=== PATIENT | female | born 1975 | race Caucasian/White ===

== ENCOUNTER 2025-01-07 07:47 | Outpatient (CLI) | payer OTHER, SELFPAY ==
--- OUTSIDE RECORDS SUMMARY | 2025-01-07 07:51 | XMS_ITS ---
Author Organization [facility] Address [address] [place] [address] Care Team Providers Care Manager Packaging Name Role Phone Kamaljit Cr Primary Care Provider Results Component Value Reference Range Notes UA/M w/rflx Culture, Routine Reviewed date:01/06/2025 11:30:23 AM Interpretation: Performing Lab:[facility], [place], [address] [facility], Phone - [phone], Director - [facility] Notes/Report: Specific [place] 1.012 1.005-1.030 pH 7.0 5.0-7.5 Urine-Color Yellow Yellow Appearance Clear Clear WBC Esterase 1+ Negative Protein Negative Negative/Trace Glucose Negative Negative Ketones Negative Negative Occult Blood Negative Negative Bilirubin Negative Negative Urobilinogen,Semi-Qn 0.2 0.2-1.0 mg/dL Nitrite, Urine Positive Negative Microscopic Examination See below: Micr oscopic was indicated and was performed. Urinalysis Reflex This speci men has reflexed to a Urine Culture. WBC 6-10 0 - 5 /hpf RBC 0-2 0 - 2 /hpf Epithelial Cells (non renal) 0-10 0 - 10 /hpf Casts None seen None seen /lpf Bacteria Many None seen/Few Urine Culture, Routine Final report Result 1 Escherichia coli Cefazolin with an QUIANA <=16 predicts susceptibility to the oral agents cefaclor, cefdinir, cefpodoxime, cefprozil, cefuroxime, cephalexin, and loracarbef when used for therapy of uncomplicated urinary tract infections due to E. coli, Klebsiella pneumoniae, and Proteus mirabilis. Greater than 100,000 colony forming units per mL Antimicrobial Susceptibility S = Susceptible; I = Intermediate; R = Resistant P = Positive; N = Negative MICS are expressed in micrograms per mL Antibiotic RSLT#1 RSLT#2 RSLT#3 RSLT#4 Amoxicillin/Clavulanic Acid S Ampicillin S Cefazolin S Cefepime S Cefoxitin S Cefpodoxime S Ceftriaxone S Ciprofloxacin R Ertapenem S Gentamicin S Levofloxacin R Meropenem S Nitrofurantoin S Piperacillin/Tazobactam S Tetracycline S Tobramycin S Trimethoprim/Sulfa S Hepatitis C Virus Antibody w /Rflx to Quantitative Real-time PCR ([id number]) Reviewed date:01/06/2025 11:30:23 AM Interpretation: Performing Lab:[facility] [place] [address] [place], [place] [address]ox [facility], Phone - [phone], Director - Nigel Notes/Report: HCV Ab Non Reactive Non Reactive Interpretation: Not infected with HCV unless early or acute infection is suspected (which may be delayed in an immunocompromised individual), or other evidence exists to indicate HCV infection. Hepatitis B Surf Ab Quant* Reviewed date:01/06/2025 11:30:23 AM Interpretation: Performing Lab:[facility] [place] [address] [place], [place] [address] [facility], Phone - [phone], Director - Nigel Notes/Report: Hepatitis B Surf Ab Quant <3.5 Immunity>10 mIU/mL Status of Immunity Anti-HBs Level Inconsistent with Immunity 0.0 - 10.0 Consistent with Immunity >10.0 Hepatitis B Surface Antigen (HBsAg Screen) Reviewed date:01/06/2025 11:30:23 AM Interpretation: Performing Lab:[facility], Phone - [phone], Director - Nigel Notes/Report: HBsAg Screen Negative Negative CMP 14 Comprehensive Metabol ic Panel* Reviewed date:01/06/2025 11:30:23 AM Interpretation: Performing Lab:[facility] [place] [facility], Phone - [phone], Director - Nigel Notes/Report: Glucose 101 70-99 mg/dL BUN 14 6-24 mg/dL Creatinine 0.80 0.57-1.00 mg/dL eGFR 90 >59 mL/min/1.73 BUN/Creatinine Ratio 18 9-23 Sodium 138 134-144 mmol/L Potassium 4.2 3.5-5.2 mmol/L Chloride 100 96-106 mmol/L Carbon Dioxide, Total 20 20-29 mmol/L Calcium 9.6 8.7-10.2 mg/dL Protein, Total 7.3 6.0-8.5 g/dL Albumin 4.4 3.9-4.9 g/dL Globulin, Total 2.9 1.5-4.5 g/dL Bilirubin, Total 0.3 0.0-1.2 mg/dL Alkaline Phosphatase 90 44-121 IU/L AST (SGOT) 25 0-40 IU/L ALT (SGPT) 29 0-32 IU/L Lipid Panel* Reviewed date:01/06/2025 11:30:23 AM Interpretation: Performing Lab:[facility] [place], [address] [place] [address], Phone - [phone], Director - [facility] Notes/Report: Cholesterol, Total 265 100-199 mg/dL Triglycerides 139 0-149 mg/dL HDL Cholesterol 51 >39 mg/dL VLDL Cholesterol New 25 5-40 mg/dL LDL Chol Calc (NIH) 189 0-99 mg/dL Hemoglobin A1c* Reviewed date:01/06/2025 11:30:23 AM Interpretation: Performing Lab:[facility] [place], [address] [place] [address], Phone - [phone], Director - PhDPaul A. Dever State Schoolabhinav Notes/Report: Hemoglobin A1c 6.2 4.8-5.6 % . Prediabetes: 5.7 - 6.4 Diabetes: >6.4 Glycemic control for adults with diabetes: <7.0 TSH Rfx on Abnormal to Free T4 Reviewed date:01/06/2025 11:30:23 AM Interpretation: Performing Lab:[facility] [place], [address] [place] [address], Phone - [phone], Director - PhDChristus St. [facility] Center[facility] Notes/Report: TSH 4.880 0.450-4.500 uIU/mL T4,Free (Direct) 0.97 0.82-1.77 ng/dL C-Reactive Protein, Quant Reviewed date:01/06/2025 11:30:23 AM Interpretation: Performing Lab:[facility] [place], [address] [facility], Phone - [phone], Director - [facility] Notes/Report: C-Reactive Protein, Quant 7 0-10 mg/L CBC With Differential/Platel et* Reviewed date:01/06/2025 11:30:23 AM Interpretation: Performing Lab:[facility] [place], [address] [facility], Phone - [phone], Director - [facility] Notes/Report: WBC 8.2 3.4-10.8 x10E3/uL RBC 4.81 3.77-5.28 x10E6/uL Hemoglobin 14.1 11.1-15.9 g/dL Hematocrit 43.2 34.0-46.6 % MCV 90 79-97 fL MCH 29.3 26.6-33.0 pg MCHC 32.6 31.5-35.7 g/dL RDW 15.5 11.7-15.4 % Platelets 426 150-450 x10E3/uL Neutrophils 43 Not Estab. % Lymphs 45 Not Estab. % Monocytes 7 Not Estab. % Eos 4 Not Estab. % Basos 1 Not Estab. % Neutrophils (Absolute) 3.5 1.4-7.0 x10E3/uL Lymphs (Absolute) 3.7 0.7-3.1 x10E3/uL Monocytes(Absolute) 0.5 0.1-0.9 x10E3/uL Eos (Absolute) 0.4 0.0-0.4 x10E3/uL Baso (Absolute) 0.1 0.0-0.2 x10E3/uL Immature Granulocytes 0 Not Estab. % Immature Grans (Abs) 0.0 0.0-0.1 x10E3/uL FSH, Serum Reviewed date:01/06/2025 11:30:23 AM Interpretation: Performing Lab:[facility] [place], [facility], Phone - [phone], Director - [facility] Notes/Report: FSH 77.7 Adult Female Range Follicular phase 3.5 - 12.5 Ovulation phase 4.7 - 21.5 Luteal phase 1.7 - 7.7 Postmenopausal 25.8 - 134.8 Iron and TIBC* Reviewed date:01/06/2025 11:30:23 AM Interpretation: Performing Lab:[facility] [place], [address] [facility], Phone - [phone], Director - [facility] Notes/Report: Iron Bind.Cap.(TIBC) 425 250-450 ug/dL UIBC 338 131-425 ug/dL Iron 87 27-159 ug/dL Iron Saturation 20 15-55 % Vitamin B12 and Folate Reviewed date:01/06/2025 11:30:23 AM Interpretation: Performing Lab:[facility] [place], [address] [facility], Phone - [phone], Director - [facility] Notes/Report: Vitamin B12 573 164-4923 pg/mL Folate (Folic Acid), Serum 5.1 >3.0 ng/mL A serum folate concentration of less than 3.1 ng/mL is considered to represent clinical deficiency. Celiac Antibodies tTG IgA, E MA IgA, Total IgA w/reflex to tTG IgG Reviewed date:01/06/2025 11:30:23 AM Interpretation: Performing Lab:[facility] [place], [address] [facility], Phone - [phone], Director - [facility] Notes/Report: Endomysial Antibody IgA Negative Negative t-Transglutaminase (tTG) IgA <2 0-3 U/mL Negative 0 - 3 Weak Positive 4 - 10 Positive >10 . Tissue Transglutaminase (tTG) has been identified as the endomysial antigen. Studies have demonstr- ated that endomysial IgA antibodies have over 99% specificity for gluten sensitive enteropathy. Immunoglobulin A, Qn, Serum 123 87-352 mg/dL HIV Screen *HIV 1, 2 Ab, p24 Ag ([id number]) Reviewed date:01/06/2025 11:30:23 AM Interpretation: Performing Lab:[facility] [place], [address] [facility], Phone - [phone], Director - [facility] Notes/Report: HIV Ab/p24 Ag Screen Non Reactive Non Reactive HIV-1/HIV-2 antibodies and HIV-1 p24 antigen were NOT detected. There is no laboratory evidence of HIV infection. HIV Negative REASON FOR VISIT labs Social History Sex Assigned At : Social History Observation Description Sex Assigned At Female Encounters Encounter Location Date Provider Diagnosis [address] [place] [address] 12/31/2024 Kamaljit Shaye Fatigue R53.83 ; Exposure to potential infection Z20.9 ; Irritable bowel syndrome with both constipation and diarrhea K58.2 ; Colon cancer screening Z12.11 ; Screening for diabetes mellitus Z13.1 ; Amenorrhea, secondary N91.1 ; Lipid screening Z13.220 and Pelvic pain in female R10.2 Assessments Encounter Date Diagnosis (ICD Code) Assessment Notes Treatment Notes Treatment Clinical Notes Section Notes 12/31/2024 Fatigue (ICD-10 - R53.83) 12/31/2024 Exposure to potential infection (ICD-10 - Z20.9) 12/31/2024 Irritable bowel syndrome with both constipation and diarrhea (ICD-10 - K58.2) 12/31/2024 Colon cancer screening (ICD-10 - Z12.11) 12/31/2024 Screening for diabetes mellitus (ICD-10 - Z13.1) 12/31/2024 Amenorrhea, secondary (ICD-10 - N91.1) 12/31/2024 Lipid screening (ICD-10 - Z13.220) 12/31/2024 Pelvic pain in female (ICD-10 - R10.2) Plan Of Treatment Pending Test Test Name Order Date H. pylori Stool Ag, EIA 12/31/2024 Occult Blood, Fecal, [place] ([id number]) 025 Calprotectin, Fecal 12/31/2024 Next Appt Details Provider Name:Giancarlo connelly, 01/13/2025 10:00:00 AM, [address] [place] [address], [place], [address], Progress Notes * Divine HARMAN GDOB:1975 (49 yo F)Acc No.[id number]:12/31/2024 UNLOCKED PROGRESS NOTE Patient: Divine MAX Provider: Temi Cr :1975 A ge:49 Y S ex:Female Date:12/31/2024 Address:[address] [facility] Subjective: * Chief Complaints: * 1 . Labs. * Medical History: Objective: * Vitals: Assessment: * Assessment: 1. F atigue - R53.83 2 . E xposure to potential infection - Z20.9 ? 3 . I rritable bowel syndrome with both constipation and diarrhea - K58.2 ?4. C olon cancer screening - Z12.11 5 . S creening for diabetes mellitus - Z13.1 6 . A menorrhea, secondary - N91.1 7 . L ipid screening - Z13.220 8 . P elvic pain in female - R10.2 Plan: * Treatment: 2. E xposure to potential infection L AB: HIV Screen *HIV 1, 2 Ab, p24 Ag ([id number]) (Collection Date & Time - 12/31/2024 09:57 AM) L AB: Hepatitis B Surface Antigen (HBsAg Screen) (Collection Date & Time - 12/31/2024 09:57 AM) L AB: Hepatitis B Surf Ab Quant* (Collection Date & Time - 12/31/2024 09:57 AM) L AB: Hepatitis C Virus Antibody w/Rflx to Quantitative Real-time PCR ([id number]) (Collection Date & Time - 12/31/2024 09:57 AM) 3. I rritable bowel syndrome with both constipation and diarrhea L AB: H. pylori Stool Ag, EIA L AB: Calprotectin, Fecal L AB: Celiac Antibodies tTG IgA, ROEL IgA, Total IgA w/reflex to tTG IgG (Collection Date & Time - 12/31/2024 09:57 AM) L AB: C-Reactive Protein, Quant (Collection Date & Time - 12/31/2024 09:57 AM) 4. C olon cancer screening L AB: Occult Blood, Fecal, [place] ([id number]) 5. S creening for diabetes mellitus L AB: Hemoglobin A1c* (Collection Date & Time - 12/31/2024 09:57 AM) 6. A menorrhea, secondary L AB: FSH, Serum (Collection Date & Time - 12/31/2024 09:57 AM) 7. L ipid screening L AB: Lipid Panel* (Collection Date & Time - 12/31/2024 09:57 AM) 8. P elvic pain in female L AB: UA/M w/rflx Culture, Routine (Collection Date & Time - 12/31/2024 09:57 AM) * Procedure Codes: 8 7338 HPYLORI, STOOL, EIA * * Electronic signature of Reji Cr , [id number] on 01/07/2025 at 07:50 AM CDT Sign off status: Pending * Provider: Temi Cr Date: 0 12/31/2024 Generated for Reji mcrae/Kasandra/Micki on: 0 01/07/2025 07:50 AM CDT
--- OUTSIDE RECORDS SUMMARY | 2025-01-07 07:51 | XMS_ITS ---
Author Organization Replaced by [facility] Address [address] [place] [address] Care Team Providers Care Merchandise Presentation Associate Name Role Phone Kamaljit Cr Primary Care Provider Medications Medication SIG (Take, Route, Fr equency, Duration) Notes Start Date End Date Status Macrobid 100 MG 1 capsule with food Orally twice a day; Duration: 5 01/06/2025 Active Social History Sex Assigned At : Social History Observation Description Sex Assigned At Female Encounters Encounter Location Date Provider Diagnosis [address] [address] 01/06/2025 Kamaljit Cr UTI (urinary tract infection) N39.0 Assessments Encounter Date Diagnosis (ICD Code) Assessment Notes Treatment Notes Treatment Clinical Notes Section Notes 01/06/2025 UTI (urinary tract infection) (ICD-10 - N39.0) 01/06/2025 Other Learning About the Safe Use of Antibiotics material was discussed. Pt was educated on use of antibiotic medication including dosing, side effects, adverse effects and anticipated response. Pt was also educated on importance of completing full course of treatment as ordered. Patient voiced understanding of all. Plan Of Treatment Medication Medication Name Sig Start Date Stop Date Notes Macrobid 100 MG 1 capsule with food Orally twice a day; Duration: 5 01/06/2025 Treatment Notes Assessment Notes Other Learning About the S afe Use of Antibiotics material was discussed. Pt was educated on use of antibiotic medication including dosing, side effects, adverse effects and anticipated response. Pt was also educated on importance of completing full course of treatment as ordered. Patient voiced understanding of all. Next Appt Details Provider Name:Giancarlo connelly, 01/13/2025 10:00:00 AM, [address] [facility], [place], [address], Progress Notes * Divine HARMAN GDOB:1975 (49 yo F)Acc No.[id number]:01/06/2025 Patient: Divine MAX :1975 A ge:49 Y S ex:Female Address:[address] [place], [address] * Refills Start Macrobid Capsule, 100 MG, Orally, 10 Capsule, 1 capsule with food, twice a day, 5, Refills=0 Subjective: * Chief Complaints: * * Medical History: * Surgical History: * Hospitalization/Major Diagno stic Procedure: * Medications: Objective: * Vitals: * Physical Examination: Assessment: * Assessment: 1. U TI (urinary tract infection) - N39.0 (Primary) Plan: * Treatment: 2. O thers Notes:Learning About the Safe Use of Antibiotics material was discussed. Pt was educated on use of antibiotic medication including dosing, side effects, adverse effects and anticipated response. Pt was also educated on importance of completing full course of treatment as ordered. Patient voiced understanding of all. * Procedure Codes: C HS02 Education given- Antibiotics prescribed * true * Date: Generated for Reji mcrae/Kasandra/eTmukeshsmitting on: 0 01/07/2025 07:50 AM CDT
--- OUTSIDE RECORDS SUMMARY | 2025-01-07 07:51 | XMS_ITS | Clinical Summary ---
Author Organization [facility] Address [address] [place] [address] Care Team Providers Care Film Printer Name Role Phone Unavailable Primary Care Provider Unavailabl e Source Comments [facility],non-owned Affiliates and Associated Physician Practices is amultiple site organization consisting of ambulatory clinics and hospital sitesin [place], [place], [place] and [place]. This disclosure is being madepursuant to the Care Everywhere program and may not contain all information available regarding this patient. Last updated 18.[facility] Allergies No known active allergies Medications * Be aware that medications may not be up to date on this document. Alwaysverify current medications with the patient. methocarbamol (ROBAXIN) 750 MG tablet Take 1 Tab by mouth every 8 hours. 15 Tab 0 02/13/2014 Active ibuprofen (MOTRIN) 800 MG tablet Take 1 Tab by mouth 3 times daily. 20 Tab 0 02/13/2014 Active traMADol-acetami nophen (ULTRACET) 37.5-325 MG tablet Take 2 Tabs by mouth every 6 hours as needed for Pain. 20 Tab 0 02/13/2014 Active Social History Tobacco Use Types Packs/Day Years Used Date Smoking Tobacco: Never Assessed Comments Unknown Sex and Gender Information Value Date Recorded Sex Assigned at Not on file Legal Sex Female 3:56 PM CDT Gender Identity Not on file Sexual Orientation Not on file Last Filed Vital Signs Vital Sign Reading Time Taken Comments Blood Pressure 102/70 02/13/2014 4:05 PM CDT Pulse 74 02/13/2014 4:05 PM CDT Temperature 37 C (98.6 F) 02/13/2014 4:05 PM CDT Respiratory Rate 18 02/13/2014 4:05 PM CDT Oxygen Saturation 100% 02/13/2014 4:05 PM CDT Inhaled Oxygen Concentration - - Weight 65.8 kg (145 lb) 02/13/2014 4:05 PM CDT Height 160 cm (5' 3) 02/13/2014 4:05 PM CDT Body Mass Index 25.69 02/13/2014 4:05 PM CDT Plan of Treatment Health Maintenance Due Date Last Done Comments COLOGUARD (AGES 45-75) - COL ON CA SCREENING 1975 COLON MONITORING 1975 COLONOSCOPY - COLON CA SCREENING 1974 CT COLONOGRAPHY - COLON CA SCREENING 1975 Colorectal Cancer Screening 1975 FIT - COLON CA SCREENING 1974 FLEX SIG - COLON CA SCREENING 1974 LIPID TESTING 1975 MAMMOGRAM 1974 HIV SCREENING 1989 HEPATITIS C SCREENING 05/05/1992 DTAP/TDAP/TD VACCINES (1 - Tdap) 1993 HEPATITIS B VACCINE (1 of 3 - 19+ 3-dose series) 1993 COVID-19 VACCINE (1 - 2023-2 5 season) 2024 PNEUMOCOCCAL VACCINE 50+ (1 of 1 - PCV) 2024 ZOSTER VACCINE (1 of 2) 2024 DEPRESSION SCREENING 06/04/2024 INFLUENZA VACCINE (#1) 2025 HIB VACCINE Aged Out No longer eligi ble based on patient's age to complete this topic HPV VACCINE Aged Out No longer eligi ble based on patient's age to complete this topic MENINGOCOCCAL (Group B) VACC INE SHARED DECISION-MAKING Aged Out No longer eligibl e based on patient's age to complete this topic MENINGOCOCCAL GROUPS A/C/Y/W VACCINE Aged Out No longer eligible b ased on patient's age to complete this topic Insurance [place] [address] TP THIRD REPUBLICAN LIABILITY Green Party Liability
--- OUTSIDE RECORDS SUMMARY | 2025-01-07 07:51 | XMS_ITS | Patient Health Record ---
Author Organization [facility] Address [address] [place] [address] Care Team Providers Care Manager [place] Name Role Phone Kamaljit Cr Primary Care Provider [phone] Giancarlo Reyna Unavailable [phone] Allergies No Known Allergies Results Component Value Reference Range Notes HIV Screen *HIV 1, 2 Ab, p24 Ag ([id number]) Reviewed date:01/06/2025 11:30:23 AM Interpretation: Performing Lab:[facility] [place], [address] [facility], Phone - [phone], Director [facility] Notes/Report: HIV Ab/p24 Ag Screen Non Reactive Non Reactive HIV-1/HIV-2 antibodies and HIV-1 p24 antigen were NOT detected. There is no laboratory evidence of HIV infection. HIV Negative Celiac Antibodies tTG IgA, E MA IgA, Total IgA w/reflex to tTG IgG Reviewed date:01/06/2025 11:30:23 AM Interpretation: Performing Lab:[facility] [place], [address] [facility], Phone - [phone], [facility] Notes/Report: Endomysial Antibody IgA Negative Negative t-Transglutaminase (tTG) IgA <2 0-3 U/mL Negative 0 - 3 Weak Positive 4 - 10 Positive >10 . Tissue Transglutaminase (tTG) has been identified as the endomysial antigen. Studies have demonstr- ated that endomysial IgA antibodies have over 99% specificity for gluten sensitive enteropathy. Immunoglobulin A, Qn, Serum 123 87-352 mg/dL Vitamin B12 and Folate Reviewed date:01/06/2025 11:30:23 AM Interpretation: Performing Lab:[facility] [address] [place] [address], Phone - [phone], Director - [facility] Notes/Report: Vitamin B12 309 481-0562 pg/mL Folate (Folic Acid), Serum 5.1 >3.0 ng/mL A serum folate concentration of less than 3.1 ng/mL is considered to represent clinical deficiency. Iron and TIBC* Reviewed date:01/06/2025 11:30:23 AM Interpretation: Performing Lab:[facility] [address] [place] [address], Phone - [phone], Director - [facility] Notes/Report: Iron Bind.Cap.(TIBC) 425 250-450 ug/dL UIBC 338 131-425 ug/dL Iron 87 27-159 ug/dL Iron Saturation 20 15-55 % Hemoglobin A1c* Reviewed date:01/06/2025 11:30:23 AM Interpretation: Performing Lab:[address], Phone - [phone], Director - [facility] Notes/Report: Hemoglobin A1c 6.2 4.8-5.6 % . Prediabetes: 5.7 - 6.4 Diabetes: >6.4 Glycemic control for adults with diabetes: <7.0 FSH, Serum Reviewed date:01/06/2025 11:30:23 AM Interpretation: Performing Lab:[facility] [address] [place] [address], Phone - [phone], Director - [facility] Notes/Report: FSH 77.7 Adult Female Range Follicular phase 3.5 - 12.5 Ovulation phase 4.7 - 21.5 Luteal phase 1.7 - 7.7 Postmenopausal 25.8 - 134.8 CBC With Differential/Platel et* Reviewed date:01/06/2025 11:30:23 AM Interpretation: Performing Lab:[facility] [address] [place] [address], Phone - [phone], Director - [facility] Notes/Report: WBC 8.2 3.4-10.8 x10E3/uL RBC [...] % Immature Grans (Abs) 0.0 0.0-0.1 x10E3/uL Hepatitis B Surface Antigen (HBsAg Screen) Reviewed date:01/06/2025 11:30:23 AM Interpretation: Performing [facility] [address] [place] [address], Phone - [phone], [facility] - [facility] Notes/Report: HBsAg Screen Negative Negative Hepatitis B Surf Ab Quant* Reviewed date:01/06/2025 11:30:23 AM Interpretation: Performing Lab[facility], [address] [place] [address], Phone - [phone], Director - Nigel Notes/Report: Hepatitis B Surf Ab Quant <3.5 Immunity>10 mIU/mL Status of Immunity Anti-HBs Level Inconsistent with Immunity 0.0 - 10.0 Consistent with Immunity >10.0 C-Reactive Protein, Quant Reviewed date:01/06/2025 11:30:23 AM Interpretation: Performing Lab:[facility], [address] [place] [address], Phone - [phone], Director - Nig[facility] Notes/Report: C-Reactive Protein, Quant 7 0-10 mg/L Hepatitis C Virus Antibody w /Rflx to Quantitative Real-time PCR ([id number]) Reviewed date:01/06/2025 11:30:23 AM Interpretation: Performing Lab:[facility] [address], Phone - [phone], Director - [facility] Notes/Report: HCV Ab Non Reactive Non Reactive Interpretation: Not infected with HCV unless early or acute infection is suspected (which may be delayed in an immunocompromised individual), or other evidence exists to indicate HCV infection. Lipid Panel* Reviewed date:01/06/2025 11:30:23 AM Interpretation: Performing Lab:[facility] [address], Phone - [phone], Director - [facility] Notes/Report: Cholesterol, Total 265 100-199 mg/dL Triglycerides 139 0-149 mg/dL HDL Cholesterol 51 >39 mg/dL VLDL Cholesterol New 25 5-40 mg/dL LDL Chol Calc (NIH) 189 0-99 mg/dL CMP 14 Comprehensive Metabol ic Panel* Reviewed date:01/06/2025 11:30:23 AM Interpretation: Performing Lab:[facility] [place], [address] [place] [address], Phone - [phone], Director - [facility] Notes/Report: Glucose 101 70-99 mg/dL BUN 14 [...] 0-40 IU/L ALT (SGPT) 29 0-32 IU/L TSH Rfx on Abnormal to Free T4 Reviewed date:01/06/2025 11:30:23 AM Interpretation: Performing Lab:[facility] [place], [address] [place] [address], Phone - [phone], Director - Nigel Notes/Report: TSH 4.880 0.450-4.500 uIU/mL T4,Free (Direct) 0.97 0.82-1.77 ng/dL UA/M w/rflx Culture, Routine Reviewed date:01/06/2025 11:30:23 AM Interpretation: Performing Lab:[facility] [place], [address] [facility], Phone - [phone], Director - Nigel Notes/Report: Specific [place] 1.012 1.005-1.030 pH 7.0 5.0-7.5 Urine-Color Yellow [...] S Tetracycline S Tobramycin S Trimethoprim/Sulfa S Reason For Referral Reason home sleep study wit h reflex to psg if abnormal Diagnosis 1 Sleep apnea in adult (G47.33) Referral Organization [facility] Referring Provider First Name Kamaljit Referring Provider Last Name Cr Referring Provider Speciality Internal M edicine Referred Provider Specialty Sleep Medici ne General Notes Miriam GARY, Tatyana Membreno 03:08:41 PM >faxed letter to client Clinical Notes [facility], [facility], [address] [facility], , Referral Priority Routine Medications Medication SIG (Take, Route, Frequency, Duration) Notes Start Date End Date Status DULoxetine HCl 20 MG 1 capsule Orally On ce a day; Duration: 14 days 12/31/2024 Active Macrobid 100 MG 1 capsule with food Orally twice a day; Duration: 5 01/06/2025 Active Pantoprazole Sodium 20 MG 1 tablet Orall y Once a day; Duration: 30 day(s) 12/31/2024 Active Social History Tobacco Use: Social History Observation Description Date Details (start date - stop date) Never Smoker NA - NA Sex Assigned At : Social History Observation Description Sex Assigned At Female PRAPARE Question Answer Notes Date Completed/Updated: 12/31/2024 What is your current housing situation? I have h ousing Are you worried about losing your housing? No What is the highest level of school that you have finished? High school diploma or GED What is your current work situation? Oth erwise unemployed but not seeking work (ex. student, retired, disabled, unpaid primary personal care assistant) In the past year, have you o r any family members you live with been unable to get any of the following when it was really needed? Check all that apply Food,Clothing,Other (please write in notes) Has lack of transportation k ept you from medical appointments, meetings, work or from getting things needed for daily living? Yes, it has kept me from medical appointments or from getting my medications,Yes, it has kept me from non-medical meetings, appointments, work, or getting things needed for daily living How often do you see or talk to people that you care about and feel close to? (For example: talking to friends on the phone, visiting friends or family, going to nondenominational or club meetings) 3 to 5 times a week How stressed are you? Stress is when someone feels tense, nervous, anxious, or can\t sleep at night because their mind is troubled Somewhat In the past year have you sp ent more than 2 nights in a row in a half-way, residential, long term center, or juvenile correctional facility? No Are you a refugee? I choose not to answer this q uestion What country are you from? [place] Do you feel physically and e motionally safe where you currently live? Yes In the past year, have you b een afraid of your partner or ex-partner? Unsure PRAPARE Score: 9 Tobacco Control (Standard) Question Answer Notes Tobacco use: Nonsmoker Problems Problem Type SNOMED Code ICD Code Onset Dates Problem Status W/U Status Risk Notes Problem Depression (074095479) Depression (F32.9) 01/01/20 25 Active confirmed Problem Migraine (05920943) Migraine (G43.909) Active confirmed Problem Chronic pain (05330351) Chronic pain (G89.29) Active confirmed Problem Overweight (202867086) Over weight (E66.3) Active confirmed Problem Obstructive sleep apnea syndrome (79679025) Sleep apnea in adult (G47.33) Active confirmed Problem Amenorrhea (29161502) Amenorrhea, secondary (N91.1) Active confirmed Problem Gastroesophageal reflux disease (457353398) GERD without esophagitis (K21.9) Active confirmed Problem Irritable bowel syndrome (09675799) Irritable bowel syndrome with both constipation and diarrhea (K58.2) Active confirmed Vital Signs Heart Rate 96 /min 12/31/2024 Respiratory Rate 16 /min 12/31/2024 Blood pressure diastolic 88 mm Hg 12/31/2024 Oximetry 98 % 12/31/2024 Height 62 in 12/31/2024 Blood pressure systolic 120 mm Hg 12/31/2024 Weight 236.0 lbs 12/31/2024 BMI 43.16 kg/m2 12/31/2024 Encounters Encounter Location Date Provider Diagnosis [address] [place] [address] 12/31/2024 Kamaljit Cr Fatigue R53.83 ; Exposure to potential infection Z20.9 ; Irritable bowel syndrome with both constipation and diarrhea K58.2 ; Colon cancer screening Z12.11 ; Screening for diabetes mellitus Z13.1 ; Amenorrhea, secondary N91.1 ; Lipid screening Z13.220 and Pelvic pain in female R10.[address] [address] 12/31/2024 Kamaljit Cr Fatigue R53.83 ; GERD without esophagitis K21.9 ; Depression F32.9 ; Chronic pain G89.29 ; Over weight E66.3 ; Irritable bowel syndrome with both constipation and diarrhea K58.2 ; Sleep apnea in adult G47.33 ; Mammogram declined Z53.20 ; Colon cancer screening Z12.11 ; Exposure to potential infection Z20.9 ; Amenorrhea, secondary N91.1 ; Pelvic pain in female R10.2 ; Lipid screening Z13.220 ; Screening for diabetes mellitus Z13.1 and Migraine G43.[address] [address] 12/31/2024 Giancarlo Reyna [address] [address] 01/06/2025 Kamaljit Cr [address] [address] 01/06/2025 Kamaljit Cr UTI (urinary tract infection) N39.[address] [address] 01/06/2025 Kamaljit Cr Assessments Encounter Date Diagnosis (ICD Code) Assessment Notes Treatment Notes Treatment Clinical Notes Section Notes 01/06/2025 UTI (urinary tract infection) (ICD-10 - N39.0) 12/31/2024 Fatigue (ICD-10 - R53.83) 12/31/2024 GERD without esophagitis (ICD-10 - K21.9) 12/31/2024 Fatigue (ICD-10 - R53.83) 12/31/2024 Depression (ICD-10 - F32.9) 12/31/2024 Exposure to potential infection (ICD-10 - Z20.9) 12/31/2024 Irritable bowel syndrome with both constipation and diarrhea (ICD-10 - K58.2) 12/31/2024 Chronic pain (ICD-10 - G89.29) 12/31/2024 Over weight (ICD-10 - E66.3) 12/31/2024 Colon cancer screening (ICD-10 - Z12.11) 12/31/2024 Screening for diabetes mellitus (ICD-10 - Z13.1) 12/31/2024 Irritable bowel syndrome with both constipation and diarrhea (ICD-10 - K58.2) 12/31/2024 Amenorrhea, secondary (ICD-10 - N91.1) 12/31/2024 Sleep apnea in adult (ICD-10 - G47.33) 12/31/2024 Mammogram declined (ICD-10 - Z53.20) 12/31/2024 Lipid screening (ICD-10 - Z13.220) 12/31/2024 Pelvic pain in female (ICD-10 - R10.2) 12/31/2024 Colon cancer screening (ICD-10 - Z12.11) 12/31/2024 Exposure to potential infection (ICD-10 - Z20.9) 12/31/2024 Amenorrhea, secondary (ICD-10 - N91.1) 12/31/2024 Pelvic pain in female (ICD-10 - R10.2) 12/31/2024 Lipid screening (ICD-10 - Z13.220) 12/31/2024 Screening for diabetes mellitus (ICD-10 - Z13.1) 12/31/2024 Migraine (ICD-10 - G43.909) 12/31/2024 Other Rec Therapist met with Divine Harman to assist in working on building skills to help the consumer gain confidence in their independent living skills. The hand sign writer practiced with Divine Harman implementing problem solving skills including getting enrolled in therapy to help facilitate exploration of options of obtaining healthy coping skills and builiding a good mental health support system. The hand sign writer encouraged and engaged in critical thinking of how to use natural resources and coping skills to help manage symptoms in the moment. Rec Therapist also worked on modeling and practicing with the consumer healthy coping skills to reduce stress and anxiety including Journaling, walking, and using her support system. 01/06/2025 Other Learning About the Safe Use of Antibiotics material was discussed. Pt was educated on use of antibiotic medication including dosing, side effects, adverse effects and anticipated response. Pt was also educated on importance of completing full course of treatment as ordered. Patient voiced understanding of all. Plan Of Treatment Pending Test Test Name Order Date H. pylori Stool Ag, EIA 12/31/2024 Occult Blood, Fecal, [place] ([id number]) 025 Calprotectin, Fecal 12/31/2024 Next Appt Details Provider Name:Giancarloalexa connelly, 01/13/2025 10:00:00 AM, [address] , [place], [address], Insurance Providers Payer Name Payer Address Payer Phone Subscriber Number Group Number Insured Name Patient Relationship to Insured Coverage Start Date Coverage End Date [facility] Attn Claims Department [address] [place] [address] [id number] Divine Harman Self - patient is the insured 5 Medical (General) History Surgical History Surgery Date(Month/Year) Tubes removed 2006 left foot surgery 2x [id number] teeth removal 1990 Hospitalization History Reason Date(Month/Year) Flu and Pnemonia 2005
--- NOTE | 2025-01-26 14:07 | WPDHOMESLEEP ---
Sleep Study - Home Unattended Date of Study: 01/07/25 Ordering Provider: Kamaljit Cr MD Interpreting Provider: Maya Arthur, DO Home Sleep Study Type: Watch PAT Height: 1.59 m Weight: 104.326 kg Body Mass Index: 41.1 Neck Circumference (inches): 14.5 [place]: 19 Reason for Sleep Study Daytime hypersomnia Sleep History The patient is a 49-year-old female who had a sleep study ordered by her primary care physician for the evaluation of sleep apnea. The patient admits to snoring loudly, excessive daytime sleepiness, trouble maintaining breathing during sleep, trouble falling asleep, and trouble staying asleep. The patient admits to interruptions in breathing while asleep, choking, or gasping at night. She denies having trouble breathing on her back. She does have morning headaches and a dry or sore mouth/throat in the morning. She does have nocturnal heartburn and nocturia. She does have trouble falling and staying asleep and trouble returning to sleep if she wakes up throughout the night. She denies any hypnotic or sedative use. She denies feeling anxious about sleep. She does feel tired or sleepy during the day and in the morning. She does have the urge to fall asleep during the day and feels drowsy while driving. She denies sleep paralysis and cataplexy. She does have hallucinations or dreamlike images and dreams during daytime naps. She does clench or grind her teeth. She denies kicking or jerking her legs excessively and having a restless feeling in her legs. She goes to bed at 10 p.m. on workdays and at 2 a.m. on her days off. It takes her 135 minutes to fall asleep on workdays and 5 hours on her days off. She gets 5 hours of sleep on workdays and 4 hours on her days off. Her sleep is a little more restorative on her days off. She does not take any planned naps. She denies dream enactment behavior and sleepwalking. She consumes 1-2 cups of a caffeinated beverage per day. She denies tobacco and alcohol use and denies exercising on a regular basis. Sleep Procedure The sleep study was completed using WatchPAT a technically adequate device with seven channels: peripheral arterial tone, actigraphy, body position, snore, respiratory movement, pulse oximetry, sleep staging, and heart rate. Prior to using the device, the patient received verbal and written instructions for its application and was provided with the help desk phone number for additional telephonic instruction with 24-hour availability of qualified personnel to answer questions. The study was scored using CMS guidelines. Sleep Architecture The total recording time is 7 hrs, 11 min. The total sleep time is 5 hrs, 59 min. Sleep latency is 17 minutes. REM latency is 158 minutes. The patient had 9 episodes of waking. Sleep architecture shows 9.7% deep sleep, 66.5% light sleep, and (as % Total Sleep Time) showed NREM (Light 66.5%; Deep 9.7%), and a 23.7% stage REM. The patient spent 29.3% of total sleep time in the supine position. Sleep efficiency was 83.29. Respiratory Analysis The overall AHI (pAHI 4%:) is 18.2. The overall AHI (pAHI 3%:) is 30.0. The central AHI is 0.0. The AHI was 30.9 in NREM and 27.3 in REM sleep. The AHI was 37.8 in Supine and 26.8 in Non-supine sleep. Percent of [place] respirations is 0.0. Oximetry Data The oxygen desaturation index (JORGE 4%:) is 14.0. The mean saturation is 93%, and the lowest saturation is 86%. Time spent with saturation < 88% is 1.1 minutes. Snoring Profile Snoring average intensity is 46 dB. The patient snored above 45 decibels for 113.2 minutes, 31.5% of sleep time. Cardiac Profile The average pulse rate is 80 beats per minutes. The lowest pulse rate is 65 bpm. The highest pulse rate reported is 110 bpm. Atrial fibrillation was not detected. Premature beats occur <0.1 per minute. Assessment and Plan Assessment and Plan (1) EILEEN (obstructive sleep apnea): Code(s): G47.33 - Obstructive sleep apnea (adult) (pediatric) Status: Acute Assessment and Plan: The patient had an overall AHI of 18.2 with desaturation down to 86%. This is consistent with moderate sleep apnea. I recommend that the patient be prescribed AutoPAP 5-15 cm H2O, CPAP mask/filters/tubing and heated humidity. A mandibular advancement device is also an acceptable treatment option. This should be used with all episodes of sleep.? Compliance should be reviewed within 31-90 days of starting therapy for usage greater than 4 hours per night greater than 70% of the nights. The patient should be asked about symptoms such as?excessive daytime sleepiness, quality of sleep, decreased nocturia, increased?mental functioning such as memory, mood, and concentration. Data The data obtained during this sleep study is adequate for interpretation. Certification This sleep study has been reviewed by a board certified sleep medicine physician.
[2025-01-27 16:10] VITALS: BMI 41.1
== END 2025-01-12 09:37 | disposition home or self-care (01) ==
LOC: ANHCSM 07:48
PROVIDERS: Visit Provider Internal Medicine
DX: G47.33 Obstructive sleep apnea (adult) (pediatric) (principal)
CPT/HCPCS: 95800